=== PATIENT | female | born 1985 | race Hispanic/Latino ===

== ENCOUNTER 2023-05-26 17:03 | Emergency (ER) | payer OTHER ==
[~2023-05-26] VITALS: Ht 154.9 cm; Wt 73.5 kg
[2023-05-26] MEDS ORDERED: IBUPROFEN 600 MG TABLET PO ONE (17:30)
[2023-05-26] MEDS ORDERED: CEPH500B PO (18:02)
[2023-05-26] MEDS ORDERED: IBUP-2070 PO (18:16)
[2023-05-26 18:17] VITALS: BP 127/68; PULSE 80; RESP 18; O2SAT 98
== END 2023-05-26 18:33 | disposition home or self-care (01) ==
LOC: EDH 17:03
DX: L02.811 Cutaneous abscess of head [any part, except face] (principal); Z79.899 Other long term (current) drug therapy; Z98.890 Other specified postprocedural states
CPT/HCPCS: 10060

== ENCOUNTER 2024-05-15 21:02 | Emergency (ER) | payer SELFPAY ==
[~2024-05-15] VITALS: Ht 152.4 cm; Wt 72.6 kg
[~2024-05-15 21:02] MED LIST: CEPH500B PO; IBUP-2070 PO
[2024-05-15 21:23] VITALS: BP 114/75; PULSE 59; RESP 16; TEMP 98.3; O2SAT 98
[2024-05-15] MEDS ORDERED: MUPI22OI2 TP (21:23)
--- NOTE | 2024-05-15 21:25 | ERN ---
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 Patient reports she had the same wound a year ago and was diagnosed with impetigo. Patient reports wound initially started as blisters and now have crusted.Denies any other wounds. Allergies: Coded Allergies: No Known Drug Allergies (Unverified Allergy, Unknown, 05/26/23) Home Meds Active Scripts Mupirocin (Mupirocin Ointment) 2 % Oint, 1 APPL TP TID for 5 Days, #15 GM 0 Refills apply to affected area(s) Prov:PATTI AHMADI [facility] 05/15/24 Ibuprofen (Ibuprofen) 600 Mg Tablet, 600 MG PO Q6H PRN for PAIN, #30 TAB Prov:SHELLY MACHUCA V [facility] 05/26/23 Cephalexin Monohydrate (Keflex) 500 Mg Cap, 500 MG PO TID for 7 Days, #21 CAP Prov:SHELLY MACHUCA V [facility] 05/26/23 Past Medical History Past Medical History: No Pertinent History Surgical History: Other Surgical History Other: TOOTH , HAND RN Note Reviewed/Agreed w/PFSH: Yes Review of System Dictation Constitutional: Negative for fever,chills, and weight loss Eyes: Negative for injury, pain,redness, and discharge ENT: Negative for injury,pain or swelling Cardiovascular: Negative for chest pain, palpitations, and edema Respiratory: Negative for shortness of breath, cough, and wheezing, Abdomen/GI: Negative for abdominal pain, nausea, vomiting, diarrhea, and constipation Back: Negative for injury and pain : Negative for injury, bleeding and discharge MS/Extremity: Negative for injury and deformity Skin: Negative for rash, and discoloration positive for wounds to nose Neuro: Negative for headache, weakness, numbness, tingling, and seizure Psych: Negative for suicide ideation, homicidal ideation, and hallucinations Initial Vital Sign VS Vital Signs Date Time Temp Pulse Resp B/P (MAP) Pulse Ox O2 Delivery O2 Flow Rate FiO2 05/15/24 21:04 97.3 77 20 133/93 100 Room Air 05/15/24 21:23 0 21 Physical Exam Dictation General: awake, alert, NAD Head/Face: Normocephalic, atraumatic Eyes: PERRL, EOMI, vision at baseline ENT: oral cavity clear, TMs clear, no signs of infection Neck: Trachea midline, supple, no nuchal rigidity Cardiovascular: RRR, normal S1/S2, No MRGs, no JVD Respiratory: CTAB, no respiratory distress, No rales or wheezes Abdomen: Soft, non-tender, non-distended, normal bowel sounds, no guarding or rebound. Skin: Warm, dry, normal turgor, no rash, honey crusted wounds noted to right nos tril and upper lip, no drainage, no blister. MS/Extremity: Pulses equal, no cyanosis, neurovascular intact, FROM Neuro: COAx4, GCS 15, strength 5/5, CN 2-12 intact, normal cerebellar exam, normal gait, Psych: Normal behavior, mood, and affect normal Results (Laboratory/Radiology) Labs Reviewed?: Yes ED Course ED Course Vital Signs Date Time Temp Pulse Resp B/P (MAP) Pulse Ox O2 Delivery O2 Flow Rate FiO2 05/15/24 21:23 98.2 59 16 114/75 98 Room Air* 0 21 05/15/24 21:04 97.3 77 20 133/93 100 Room Air Medical Decision Making MDM MDM: The patient is a 39-year-old female with history of D and C who presents to the emergency department with a wound to nose onset one week ago. Patient reports she had the same wound a year ago and was diagnosed with impetigo. Patient reports wound initially started as blisters and now have crusted.Denies any other wounds. wound consistent with impetigo. patient will be treated with topical antibiotic. Patient in no acute distress. Differential diagnosis: Cellulitis, herpes, impetigo Need for hospitalization: Patient does not meet criteria for hospitalization. There are no social concerns with this patient. Prescription drug management DX & DISP Disposition: Discharge Departure Impression: Primary Impression: Impetigo Condition: Stable Scripts Mupirocin (Mupirocin Ointment) 2 % Oint 1 APPL TP TID for 5 Days, #15 GM 0 Refills apply to affected area(s) Prov: PATTI AHMADI [employer] 05/15/24 Additional Instructions: Please follow up with pcp in 1-2 days. take medications as prescribed. Referrals: SILVANA BENEDICT MD (PCP) Time of Disposition: 21:23 I have reviewed the case, and I agree with, Diagnosis and Plan ATTESTATION BY PHYSICIAN I PERFORMED THE SUBSTANTIVE PORTION OF THE VISIT. I HAVE REVIEWED AND PERSONALLY MADE AND APPROVED THE MANAGEMENT PLAN THAT IS DOCUMENTED IN THE NOTE BY MYSELF FOR THE A PP. I ACKNOWLEDGED FOR RESPONSIBILITY FOR THE PATIENT'S MANAGEMENT PLAN. PATTI AHMADI May 15, 2024 21:25 SHARON RUBIO MD May 16, 2024 05:18
== END 2024-05-15 21:34 | disposition home or self-care (01) ==
LOC: EDH 21:02
DX: L01.00 Impetigo, unspecified (principal); Z79.899 Other long term (current) drug therapy
CPT/HCPCS: 99283

== ENCOUNTER 2024-06-21 12:59 | Emergency (ER) | payer SELFPAY ==
[~2024-06-21] VITALS: Ht 152.4 cm; Wt 68.0 kg
[~2024-06-21 12:59] MED LIST changes: +MUPI22OI2 TP
--- NOTE | 2024-06-21 13:39 | ERN ---
General Chief Complaint: Laceration/Avulsion Stated Complaint: LEFT THUMB LACERATION Time Seen by MD: 13:00 History of Present Illness Initial Comments Otherwise healthy 39-year-old female who presents for left thumb laceration. 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 It is superficial proximally 1 cm. Bleeding is now controlled. Neurovascularly intact. Injuries. Allergies: Coded Allergies: No Known Drug Allergies (Unverified Allergy, Unknown, 05/26/23) Home Meds Active Scripts Mupirocin (Mupirocin Ointment) 2 % Oint, 1 APPL TP TID for 5 Days, #15 GM 0 Refills apply to affected area(s) Prov:PATTI AHMDAI [facility] 05/15/24 Ibuprofen (Ibuprofen) 600 Mg Tablet, 600 MG PO Q6H PRN for PAIN, #30 TAB Prov:SHELLY MACHUCA V [facility] 05/26/23 Cephalexin Monohydrate (Keflex) 500 Mg Cap, 500 MG PO TID for 7 Days, #21 CAP Prov:SHELLY MACHUCA V [facility] 05/26/23 Past Medical History Past Medical History: No Pertinent History Past Surgical History: Other Surgical History Other: TOOTH , HAND Female( History) LMP: May 19, 2024 ROS Dictation CONSTITUTIONAL: No chills, no fever, no weakness, no diaphoresis, no malaise. HEAD/FACE: No signs of trauma. EENT: No eye pain, no blurred vision, no tearing, no double vision, no ear pain, no ear discharge, no nose pain, no nasal congestion, no throat pain, no throat swelling, no mouth pain. RESPIRATORY: No cough, no orthopnea, no SOB, no stridor, no wheezing. CARDIOVASCULAR: No chest pain, no edema, no palpitations, no syncope. GASTROINTESTINAL/ABDOMINAL: No abdominal pain, no constipation, no diarrhea, no nausea, no vomiting. GENITOURINARY: No abnormal discharge, no dysuria, no frequent urination, no hematuria. No complaints of pain in the genitals. MUSCULOSKELETAL: No back pain, no gout, no joint pain, no joint swelling, no muscle pain, no muscle stiffness, no neck pain. INTEGUMENTARY: No change in color, no change in hair/nails, no dryness, no lesion, no lumps, no rash. NEUROLOGICAL/PSYCH: No anxiety, not depressed, no emotional problem, no headache, no numbness, no pre-existing deficit, no history of seizures, no tremors, no weakness. HEMATOLOGIC/LYMPHATIC: Not anemic, no history of blood clots, no apparent bleeding, no bruising, glands not swollen. All Systems Negative, Except as Noted. Physical Exam Physical Exam Dictation VITAL SIGNS: Reviewed. GENERAL APPEARANCE: Alert, oriented x3, no acute distress. HEAD AND FACE: Non-traumatic. EYES: PERRL, pink conjunctivas, eyelid no trauma, anterior chamber clear. EARS: Pinnas intact and no signs of trauma or erythema. Ear canals clear and no discharge. TMs no erythema. NOSE: No discharge, no bleeding. OROPHARYNX: Mouth normal, teeth no caries, tongue pink. Pharynx clear, no erythema. Tonsils no exudates, no abscesses noted. Mucous membrane moist. NECK: Supple, non-tender, no thyromegaly, no masses, no JVD, no bruits. BREAST: Deferred. CHEST: No tenderness, no crepitus, no paradoxical movement, no retractions. LUNGS: Clear, well-ventilated, symmetric, no rales, no wheezing, no rhonchi, no stridor, good breath sounds bilaterally. HEART: Regular rate, regular rhythm, no murmur, no gallops. VASCULAR: No peripheral edema. ABDOMEN: Soft, positive bowel sounds, nondistended, no guarding, nontender, no rebound, no masses no hepatomegaly, no splenomegaly, no Amaya's sign, no hernias. RECTAL: Deferred. GENITAL: Deferred. NEUROLOGICAL: Normal speech, gross motor function intact, gross sensory function intact. MUSCULOSKELETAL: Neck nontender, full range of motion, back nontender, full range of motion. Right thumb laceration described in [facility] EXTREMITIES: Nontender, full range of motion. SKIN: Color pink, dry, no turgor, no rash, no lacerations, no abrasions, no contusions. LYMPHATICS: Deferred. [facility] CC: Thumb injury/laceration Historian: Patient Comorbidities: None Vital signs are stable On clinical exam she has a very superficial 1 cm laceration along the joint of the medial aspect of the left thumb. Bleeding is controlled. No tendinous involvement. She is able to flex and extend the thumb. Good cap refill. Wound cleaned by the RN. Placed in a bandage. There is no indication for repair at this time. Tetanus updated We will DC ED Course Vital Signs Date Time Temp Pulse Resp B/P (MAP) Pulse Ox O2 Delivery O2 Flow Rate FiO2 06/21/24 13:18 98.6 66 16 121/88 100 Room Air 0 DX & DISP Disposition: Discharge Departure Impression: Primary Impression: Laceration of left thumb Condition: Stable Additional Instructions: The laceration was cleaned and repaired with skin glue here in the ER. The glue will call off on its own. You can keep it covered for the next few days. Keep the wound clean with soap and water. You can take ibuprofen or Tylenol as needed for pain. Your tetanus was updated here in the ER. This vaccination as good for five years. Please follow up as needed. Referrals: SILVANA BENEDICT MD (PCP) VERONICA MCLAUGHLIN DO Jun 21, 2024 13:39
[2024-06-21] MEDS: teTANUS/diphthERIA TOXOID [ADULT] 0.5 ML VIAL IM ONE (13:45)
[2024-06-21 13:56] VITALS: BP 121/56; PULSE 78; RESP 20; TEMP 98.8; O2SAT 98
--- NOTE | 2024-06-21 14:16 | NUR ---
WOUND SOAKED IN [place] AND CLEANSED WITH WOUND CLEANSER. PATIENT GIVEN TDAP.
== END 2024-06-21 14:27 | disposition home or self-care (01) ==
LOC: EDH 12:59
DX: S61.012A Laceration without foreign body of left thumb without damage to nail, initial encounter (principal); Z79.899 Other long term (current) drug therapy; Z98.890 Other specified postprocedural states; W26.8XXA Contact with other sharp object(s), not elsewhere classified, initial encounter; Y93.89 Activity, other specified; Y92.89 Other specified places as the place of occurrence of the external cause; Y99.8 Other external cause status
CPT/HCPCS: 90471; 90714; 99283

== ENCOUNTER 2025-04-25 13:32 | Emergency (ER) | payer MEDICAID ==
[~2025-04-25] VITALS: Ht 152.4 cm; Wt 77.1 kg
[~2025-04-25 13:32] MED LIST changes: +IBUP-1492 PO; -IBUP-2070 PO
[2025-04-25 13:34] VITALS: BP_DIAS 89
[2025-04-25] MEDS ORDERED: METH4TAB3 PO (13:43)
[2025-04-25] MEDS ORDERED: AZIT250T9 PO (13:43)
--- NOTE | 2025-04-25 13:44 | ERN ---
General Chief Complaint: Congestion Stated Complaint: CONGESTION, STUFFY HEAD Time Seen by MD: 13:35 Time Seen by Midlevel: 13:35 Source: patient History of Present Illness Initial Comments 40-year-old female presents to the emergency department with flu-like symptoms. Symptoms consist of nasal congestion and allergies Allergies: Coded Allergies: No Known Drug Allergies (Unverified Allergy, Unknown, 05/26/23) Home Meds Active Scripts Mupirocin (Mupirocin Ointment) 2 % Oint, 1 APPL TP TID for 5 Days, #15 GM 0 Refills apply to affected area(s) Prov:PATTI AHMADI [facility] 05/15/24 Ibuprofen (Ibuprofen) 600 Mg Tablet, 600 MG PO Q6H PRN for PAIN, #30 TAB Prov:SHELLY MACHUCA V [facility] 05/26/23 Cephalexin Monohydrate (Keflex) 500 Mg Cap, 500 MG PO TID for 7 Days, #21 CAP Prov:BRIGETTESHELLY ARAYA V [facility] 05/26/23 Past Medical History Past Medical History: No Pertinent History Past Surgical History: Other Surgical History Other: TOOTH , HAND ROS Dictation CONSTITUTIONAL: Negative except for HPI HEAD/FACE: Negative except for HPI EENT: Negative except for HPI RESPIRATORY: Negative except for HPI GASTROINTESTINAL/ABDOMINAL: Negative except for HPI GENITOURINARY: Negative except for HPI MUSCULOSKELETAL: Negative except for HPI INTEGUMENTARY: Negative except for HPI NEUROLOGICAL/PSYCH: Negative except for HPI HEMATOLOGIC/LYMPHATIC: Negative except for HPI All Systems Negative, Except as noted above. 13 point review of systems assessed and all negative except for above. Physical Exam Physical Exam Dictation Vital Signs reviewed General Appearance: Alert, oriented x 3, no acute distress, well developed, nourished. Head and Face: non-traumatic. Eyes: PERRL, pink conjunctivas, eyelid no trauma, anterior chamber with arcus senilis. Ears: Pinnas intact and no signs of trauma or erythema ear canals clear and no discharge TM no erythema Nose: No discharge, no bleeding. Oropharynx: Mouth normal, tongue pink, pharynx clear,no erythema, tonsils no exudates, no abscesses noted, mucous membrane moist Neck: Supple, non-tender, no thyromegaly, no masses, no JVD, no bruits Breast:Deferred Chest:No tenderness, no crepitus, no paradoxical movement, no retractions Lungs:Clear, well-ventilated, symmetric, no rales, no wheezing, no rhonchi, no stridor, good breath sounds bilaterally Heart: Regular rate, regular rhythm, no murmur, no gallops Vascular: no peripheral edema, Abdomen: Soft, positive bowel sounds, nondistended, no guarding, nontender, no rebound, no masses no hepatomegaly, no splenomegaly, no Amaya's sign, no hernias. Rectal: Deferred Genital: Deferred Neurological: Normal speech, motor function intact, sensory function intact Musculoskeletal: Neck nontender, full range of motion, back nontender, full range of motion, Extremities: nontender, full range of motion Skin: Color pink, dry, no turgor, no rash, no lacerations, no abrasions, no contusions. Lymphatic: Deferred MDM MDM: Differential diagnosis: Viral syndrome, upper respiratory infection, strep There are no social concerns with this patient. Prescription drug management Prescriptions will include: Azithromycin and Medrol pack Medical management and examination interpretation discussions were had by me with other qualified healthcare professionals as indicated for the patient's care. ED Course Vital Signs Date Time Temp Pulse Resp B/P (MAP) Pulse Ox O2 Delivery O2 Flow Rate FiO2 04/25/25 13:34 98.1 74 20 137/89 98 Room Air 0 DX & DISP Disposition: Discharge Departure Impression: Primary Impression: Upper respiratory infection Condition: Stable Scripts Methylprednisolone (Medrol) 4 Mg Tab.ds.pk 1 TAB PO AD for 6 Days, #21 TAB 0 Refills 6 on day 1 then reduce by one tablet daily until gone Prov: DEMETRIO JEWELL PAC 04/25/25 Azithromycin (Azithromycin) 250 Mg Tablet 1 TAB PO AD for 5 Days, #6 TAB 0 Refills 2 the first day followed by 1 for days 2-5 Prov: DEMETRIO JEWELL PAC 04/25/25 Referrals: SILVANA BENEDICT MD (PCP) Time of Disposition: 13:43 I have reviewed the case, and I agree with, Diagnosis and Plan I performed the substantive portion of the visit. I have reviewed and personally made and approve the management plan that is documented in the note by myself or the LYNETTE. I acknowledge for responsibility for the patient's management plan. DEMETRIO JEWELL PAC Apr 25, 2025 13:44
[2025-04-25 15:00] VITALS: BP_SYST 89; PULSE 74; RESP 12; TEMP 98.1; O2SAT 100
== END 2025-04-25 15:55 | disposition home or self-care (01) ==
LOC: EDH 13:32
DX: J06.9 Acute upper respiratory infection, unspecified (principal)
CPT/HCPCS: 99283; 96372; J1100